=== PATIENT | male | born 1990 | race Caucasian/White ===

== ENCOUNTER 2020-12-18 15:44 | Outpatient (REF) | payer OTHER, SELFPAY | END 2020-12-18 15:45 | disposition home or self-care (01) | LOC: HO.LAB 15:44 | PROVIDERS: Visit Provider Internal Medicine | DX: Z20.822 Contact with and (suspected) exposure to COVID-19 (principal) | CPT/HCPCS: 36415; C9803; U0003; U0005 ==

== ENCOUNTER 2021-11-13 10:53 | Outpatient (REF) | payer OTHER, SELFPAY ==
[2021-11-13 12:35] LABS: COVID-19 Test Negative (Negative)
== END 2021-11-13 10:54 | disposition home or self-care (01) ==
LOC: HO.LAB 10:53
PROVIDERS: Visit Provider Internal Medicine
DX: Z20.822 Contact with and (suspected) exposure to COVID-19 (principal)
CPT/HCPCS: 36415; 87635; C9803